=== PATIENT | female | born 1950 | race Caucasian/White ===

== ENCOUNTER 2022-09-30 10:45 | Emergency (ER) | payer MEDICARE, OTHER, SELFPAY ==
[2022-09-30] VITALS (11 sets, daily range): BP systolic 145–181; BP diastolic 67–84; PULSE 70–99; RESP 20–22; TEMP 36.6; O2SAT 94–98; BMI 47.5
--- NOTE | 2022-09-30 11:04 | DI.CT.S_ITS ---
PROCEDURE: CT ABDOMEN PELVIS W CON INDICATIONS: RLQ ABD pain has had appy TECHNIQUE: After the administration of oral and IV contrast, axial sections were acquired from the lung bases to the pubic symphysis. Coronal and sagittal reformats were performed. For radiation dose reduction, the following was used: automated exposure control, adjustment of mA and/or kV according to patient size. COMPARISON: None. FINDINGS: Image quality: Excellent. Lung bases: Unremarkable. Heart: Mildly prominent. ABDOMEN: Liver: Mild appendix steatosis is present. Gallbladder: Removed. Biliary ducts: Unremarkable. Pancreas: Unremarkable. Spleen: Unremarkable. Adrenal Glands: Unremarkable. 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 There is a very minimal prominence of the right renal collecting system. Renal fossa is unremarkable. Simple left renal cyst. Stomach and Bowel: Stomach, small bowel loops, and colon are nonobstructive. Colonic diverticula are present. No associated inflammatory change. Visualized portion of the appendix is normal. No right lower quadrant inflammatory change. Peritoneum: No abnormal intraperitoneal fluid. No free air. Ventral Wall: No hernia. Abdominal Nodes: No retroperitoneal or mesenteric adenopathy by size criteria. Vessels: Aorta and inferior vena cava are normal in size. PELVIS: Pelvic Organs: Unremarkable. Bladder: Unremarkable. Pelvic Nodes: No enlarged lymph nodes. Miscellaneous: No inguinal hernias are seen. Bones: Unremarkable. IMPRESSION: Minimal prominence of the right renal collecting system. Recently passed stone cannot be definitively excluded. Diverticulosis. Dictated by: Alisia Fontaine M.D. on 09/30/2022 at 13:27 Approved by: Alisia Fontaine M.D. on 09/30/2022 at 13:29
--- NOTE | 2022-09-30 11:15 | ED_ITS ---
HPI - General Adult General Chief complaint: Abdominal Pain Stated complaint: Rt Lower Abd Pain Time Seen by Provider: 09/30/22 11:03 Source: patient Mode of arrival: Ambulatory History of Present Illness HPI narrative: Patient is a 71-year-old female. Here for evaluation of right lower quadrant abdominal pain. She states that it started this morning. Potentially woke her up from sleep. Has not had any urinary symptoms no change in bowel habits. No vomiting. She has had her appendix out and also her right ovary. She is also had her left kidney removed. There is no skin changes of the area. It does hurt to touch and move. Has not tried anything for the symptoms prior to arrival. Related Data Previous Rx's Medication Instructions Recorded hydrocodone 5 mg-acetaminophen 325 1 tab PO Q8H PRN pain #7 tabs 09/30/22 mg tablet Allergies Allergy/AdvReac Type Severity Reaction Status Date / Time No Known Drug Allergies Allergy Verified 09/30/22 11:04 Review of Systems Review of Systems ROS Unobtainable: All systems reviewed & are unremarkable except as noted in HPI and below Patient History Social History Smoking Status: Unknown if ever smoked Smoking Status: Unknown if ever smoked alcohol intake frequency: holidays/special occasions only Substance Use Type: does not use Exam Initial Vital Signs Initial Vital Signs: Vital Signs Temperature 97.9 F 09/30/22 11:00 Pulse Rate 91 H 09/30/22 11:00 Respiratory Rate 22 09/30/22 11:00 Blood Pressure 181/79 H 09/30/22 11:00 Pulse Oximetry 94 09/30/22 11:00 Oxygen Delivery Method Room Air 09/30/22 11:00 Const General: cooperative, comfortable and No ill appearing [facility] Head: normal to inspection and normocephalic Resp Effort & Inspection: normal respiratory effort Auscultation: clear to auscultation bilaterally Cardio Rate: regular rate GI Inspection: normal to inspection and non-distended Palpation: No firm and tender (Right-sided lower abdominal pain located within the pannus.) Back/Spine/Pelvis Back: No CVA tenderness Skin General: no rashes or lesions noted Neuro General: patient alert, patient awake and moves all extremities Extrem General: capillary refill normal Psych Appearance: grossly normal and well kempt Course Orders Ordered: ED Orders 09/30/22 11:04 CT abdomen pelvis w con Stat 09/30/22 11:23 Complete Blood Count AUTO DIFF Stat Comprehensive Metabolic Panel Stat Lipase Stat Ondansetron HCl (Ondansetron 4 Mg/2 Ml Inj) 4 mg IV NOW PRN PRN Reason: Nausea And Vomiting Discontinued Medications Hydrocodone Bitart/Acetaminophen (Hydrocodone/Acet 5/325 Tablet) 1 tab PO NOW ONE Stop: 09/30/22 13:56 Sodium Chloride (Normal Saline 0.9%) 1,000 mls @ 1,000 mls/hr IV BOLUS ONE Stop: 09/30/22 12:02 Last Infusion: 09/30/22 12:15 Dose: 0 mls/hr Documented By: Admin: 09/30/22 11:26 Dose: 1,000 mls/hr Documented By: JUDITH Ketorolac Tromethamine (Ketorolac 30 Mg/Ml Vial) 30 mg IV NOW ONE Stop: 09/30/22 11:04 Last Admin: 09/30/22 11:22 Dose: Not Given Documented By: JUDITH Morphine Sulfate (Morphine 4 Mg/Ml Inj) 4 mg IV NOW ONE Stop: 09/30/22 11:16 Last Admin: 09/30/22 11:26 Dose: 4 mg Documented By: JUDITH Vital Signs Vital signs: Vital Signs - 8 hr 09/30/22 11:00 09/30/22 11:04 09/30/22 11:04 Temperature 97.9 F Pulse Rate 91 H 78 Respiratory Rate 22 Blood Pressure 181/79 H 181/79 H Pulse Oximetry 94 96 Oxygen Delivery Method Room Air 09/30/22 11:30 09/30/22 11:31 09/30/22 11:31 Temperature Pulse Rate 83 78 Respiratory Rate Blood Pressure 154/69 H Pulse Oximetry 96 95 Oxygen Delivery Method 09/30/22 12:00 09/30/22 12:01 09/30/22 12:01 Temperature Pulse Rate 71 70 Respiratory Rate Blood Pressure 145/67 H Pulse Oximetry 98 97 Oxygen Delivery Method 09/30/22 12:31 Temperature Pulse Rate 87 Respiratory Rate Blood Pressure Pulse Oximetry 97 Oxygen Delivery Method Medical Decision Making Lab Data Lab results reviewed: Yes I reviewed the patient's lab results. 09/30/22 11:23 09/30/22 11:23 Labs: Lab Results 09/30/22 09/30/22 Range/Units 11:23 11:23 WBC 8.1 (4.5-11.0) X10^3/uL RBC 5.00 (4.0-5.2) X10^6/uL Hgb 14.6 (12.0-16.0) g/dL Hct 44.4 (36-46) % MCV 88.7 (80-100) fL MCH 29.3 (26-34) PG MCHC 33.0 (30-36) % RDW 13.4 (11.6-14.8) % Plt Count 309 (150-400) X10^3/uL Neut % (Auto) 58.8 (50-75) % Lymph % (Auto) 31.8 (25-40) % [place] % (Auto) 6.6 (3-14) % Eos % (Auto) 2.0 (2-4) % Baso % (Auto) 0.8 (0-2) % Neut # (Auto) 4700 (8556-6073) /uL Lymph # (Auto) 2600 (4446-8286) /uL [place] # (Auto) 500 (0-900) /uL Eos # (Auto) 200 (0-450) /uL Baso # (Auto) 100 (0-100) /uL Sodium 136 L (137-145) mmol/L Potassium 4.2 (3.4-5.1) mmol/L Chloride 103 (98-107) mmol/L Carbon Dioxide 25 (22-32) mmol/L BUN 16 (7-17) mg/dL Creatinine 1.04 (0.52-1.04) mg/dL Estimated GFR 57 L (>60) mL/min BUN/Creatinine Ratio 15.4 (6-22) Glucose 116 H (80-110) mg/dL Calcium 9.4 (8.4-10.2) mg/dL Total Bilirubin 0.9 (0.2-1.3) mg/dL AST 24 (14-36) IU/L ALT 25 (<35) IU/L Alkaline Phosphatase 35 L (38-126) U/L Total Protein 7.3 (6.3-8.2) g/dL Albumin 4.0 (3.5-5.0) g/dL Globulin 3.3 (1.7-4.1) g/dL Albumin/Globulin Ratio 1.2 (1.0-2.8) Lipase 86 (23-300) U/L Urine Dip Bedside Urine Glucose Negative Bedside Urine Bilirubin - Negative Bedside Urine Ketone - Negative Urine Specific [place] 1.015 Bedside Urine Occult Blood - Negative Bedside Urine pH 6.0 Bedside Urine Protein - Negative Bedside Urine Urobilinogen - Negative Bedside Urine Nitrite - Negative Bedside Urine Leukocytes - Negative Esterase Point of care testing: Urine Dip Bedside Urine Glucose Negative Bedside Urine Bilirubin - Negative Bedside Urine Ketone - Negative Urine Specific [place] 1.015 Bedside Urine Occult Blood - Negative Bedside Urine pH 6.0 Bedside Urine Protein - Negative Bedside Urine Urobilinogen - Negative Bedside Urine Nitrite - Negative Bedside Urine Leukocytes - Negative Esterase Imaging Data CT scan - abdomen/pelvis: Radiologist's Impression: PROCEDURE:? CT ABDOMEN PELVIS W CON ? INDICATIONS:? RLQ ABD pain has had appy ? TECHNIQUE:? After the administration of oral and IV contrast, axial sections were acquired from the lung bases to the pubic symphysis.? Coronal and sagittal reformats were performed.? For radiation dose reduction, the following was used:? automated exposure control, adjustment of mA and/or kV according to patient size. ? COMPARISON:? None. ? FINDINGS:? Image quality:? Excellent.? ? Lung bases:? Unremarkable.? ? Heart:? Mildly prominent. ? ? ABDOMEN: Liver:? Mild appendix steatosis is present. Gallbladder:? Removed. Biliary ducts:? Unremarkable.? ? Pancreas:? Unremarkable.? ? Spleen:? Unremarkable.? ? Adrenal Glands:? Unremarkable.? ? Kidneys and Ureters:? Left kidney has been removed.? There is a very minimal prominence of the right renal collecting system.? Renal fossa is unremarkable.? Simple left renal cyst. ? Stomach and Bowel:? Stomach, small bowel loops, and colon are nonobstructive.? Colonic diverticula are present.? No associated inflammatory change.? Visualized portion of the appendix is normal.? No right lower quadrant inflammatory change. Peritoneum:? No abnormal intraperitoneal fluid.? No free air.? ? Ventral Wall: ? No hernia.? Abdominal Nodes:? No retroperitoneal or mesenteric adenopathy by size criteria.? Vessels:? Aorta and inferior vena cava are normal in size.? ? PELVIS: Pelvic Organs:? Unremarkable.? ? Bladder:? Unremarkable.? ? Pelvic Nodes: No enlarged lymph nodes.? Miscellaneous: No inguinal hernias are seen. ? ? ? Bones:? Unremarkable.? IMPRESSION:? ? Minimal prominence of the right renal collecting system.? Recently passed stone cannot be definitively excluded. ? Diverticulosis. MDM Narrative Medical decision making narrative: Patient has no skin changes over the area that would make me think of cellulitis /abscess or zoster. CT scan does not show any fluid collection in the area. CT scan also does not show any acute pathology. Patient is not having any urinary symptoms. She does have stranding in the right sided ureteral system however her urinalysis is negative for infection. No kidney stone seen on the exam. She is currently still having symptoms so I suspect that kidney stone is unlikely. This also no signs of diverticulitis. No suspicion for stump appendicitis. She is had her ovary removed on the right. I discussed all this with her. She understands the lack of a definitive diagnosis of her symptoms. Was sent home with symptom control. She was given specific return precautions and follow-up instructions. She expressed understanding and agreement. Discharge Plan Departure Patient Disposition: Home Clinical Impression: Abdominal pain Instructions: DI for Abdominal Pain-Adult Activity Restrictions/Additional Instructions: Your workup today is very reassuring and there does not appear to be any signs of bowel obstruction or hernia or other surgical issue. Unfortunately this does not give us a specific cause of your discomfort. I recommend that we treat you with pain medication. If your symptoms change or you develop a rash or any other worsening symptoms please return to the emergency department for further evaluation. Prescriptions: New hydrocodone-acetaminophen 5-325 mg tablet 1 tab PO Q8H PRN (Reason: pain) Qty: 7 0RF Referrals: Fernanda Mendiola PA-C [Primary Care Provider] - Stand Alone Forms: Patient Portal/API
[2022-09-30] MEDS: SODIUM CHLORIDE 0.9% 1,000 ML 1000 ML IV (11:26)
[2022-09-30] MEDS: MORPHINE 4 MG/ML INJ IV (11:26)
[2022-09-30 11:32] LABS: Add Manual Diff / Slide Review NO; Basophils Absolute Auto 100 /uL (0-100); Basophils Percent Auto 0.8 % (0-2); Eosinophils Absolute Auto 200 /uL (0-450); Hematocrit 44.4 % (36-46); Hemoglobin 14.6 g/dL (12.0-16.0); Lymphocytes Absolute Auto 2600 /uL (1100-4500); Lymphocytes Percent Auto 31.8 % (25-40); Mean Corpuscular Hemoglobin 29.3 PG (26-34); Mean Corpuscular Volume 88.7 fL (80-100); Monocytes Absolute Auto 500 /uL (0-900); Monocytes Percent Auto 6.6 % (3-14); Neutrophils Absolute Auto 4700 /uL (1500-7000); Neutrophils Percent Auto 58.8 % (50-75); Platelet Count 309 X10^3/uL (150-400); Red Cell Distribution Width 13.4 % (11.6-14.8); White Blood Cell Count 8.1 X10^3/uL (4.5-11.0)
[2022-09-30 11:46] LABS: Alanine Aminotransferase 25 IU/L (<35); Albumin Globulin Ratio 1.2 (1.0-2.8); Alkaline Phosphatase 35 U/L (38-126); Aspartate Aminotransferase 24 IU/L (14-36); BUN Creatinine Ratio 15.4 (6-22); Bilirubin Total 0.9 mg/dL (0.2-1.3); Blood Urea Nitrogen 16 mg/dL (7-17); Calcium 9.4 mg/dL (8.4-10.2); Carbon Dioxide 25 mmol/L (22-32); Chloride 103 mmol/L (98-107); Estimated Glomerular Filt Rate 57 mL/min (>60); Globulin 3.3 g/dL (1.7-4.1); Glucose 116 mg/dL (80-110); HEMOLYSIS < 15 (0-50); Lipase 86 U/L (23-300); Potassium 4.2 mmol/L (3.4-5.1); Sodium 136 mmol/L (137-145); Total Protein 7.3 g/dL (6.3-8.2)
[2022-09-30] MEDS: HYDROCODONE/ACET 5/325 TABLET 1 TAB PO (13:58)
== END 2022-09-30 14:13 | disposition home or self-care (01) ==
PROVIDERS: Emergency Provider Emergency Medicine; PCP Student in an Organized Health Care Education/Training Program
DX: R10.31 Right lower quadrant pain (principal)
CPT/HCPCS: 36415; 74177; 80053; 81003; 83690; 85025; 96361; 96374; 99284; J2270; Q9967

== ENCOUNTER → 2022-11-28 11:23 | Outpatient (CLI) | payer MEDICARE, OTHER, SELFPAY ==
--- NOTE | 2022-11-28 | DI.CT.S_ITS ---
PROCEDURE: CT ANGIO ABDOMEN PELVIS INDICATIONS: RIGHT LOWER QUADRANT PAIN TECHNIQUE: After the administration of intravenous contrast, 2.5 mm thick sections acquired from the diaphragm to the symphysis. 10 mm maximum-intensity projection (MIP) reformats were then acquired. For radiation dose reduction, the following was used: automated exposure control. COMPARISON: [facility] Outside Film, MR, MR LUMBAR SPINE WITHOUT CONTRAST, 04/25/2022, 9:54. [facility], CT, CT ABDOMEN PELVIS W CON, 09/30/2022, 12:14. FINDINGS: Image quality: Excellent. Aorta: The aorta demonstrates normal caliber with mild scattered atheromatous calcifications. No aneurysmal dilatation or stenosis. Mesenteric arteries: Celiac trunk, superior and inferior mesenteric arteries appear patent. The right renal artery is widely patent. Right pelvic arteries: No stenosis. Left pelvic arteries: No stenosis. Extravascular soft tissues: Lung bases are clear. Heart size is normal. Liver is normal in size and enhancement. Gallbladder is surgically absent. Biliary system is non dilated. Pancreas enhances normally. Spleen is normal in size and enhancement. No right adrenal nodules. There is an enhancing 1.3 x 0.8 cm left adrenal gland nodule (series 4/image 69). Right kidney demonstrates normal size. No hydronephrosis. A cortical cyst is present in the lower pole. The left kidney is surgically absent. There is a small hiatal hernia. Non opacified bowel loops are normal in wall thickness and caliber. There are scattered sigmoid diverticula. No evidence for diverticulitis. No free fluid or air. No retroperitoneal or mesenteric adenopathy. No ventral hernias. No suspicious bony lesions. No vertebral body compression fractures. IMPRESSION: 1. Mesenteric arteries are widely patent. 2. No acute intra-abdominal findings. Diverticulosis. No acute diverticulitis. 3. Enhancing left adrenal gland nodule. If further characterization is warranted, adrenal mass protocol MRI recommended. Dictated by: Sarah Gee M.D. on 11/28/2022 at 15:57 Approved by: Sarah Gee M.D. on 11/28/2022 at 16:03
== END ==
PROVIDERS: PCP Student in an Organized Health Care Education/Training Program; Referring Provider Nurse Practitioner Family; Visit Provider Nurse Practitioner Family
DX: K44.9 Diaphragmatic hernia without obstruction or gangrene (principal); E27.9 Disorder of adrenal gland, unspecified; K57.30 Diverticulosis of large intestine without perforation or abscess without bleeding; R10.31 Right lower quadrant pain; Z90.49 Acquired absence of other specified parts of digestive tract
CPT/HCPCS: 74174

== ENCOUNTER → 2024-03-07 08:32 | Outpatient (CLI) | payer MEDICARE, OTHER, SELFPAY ==
[2024-03-07 10:07] LABS: Hematocrit 44.9 % (36-46)
[2024-03-07 10:19] LABS: BUN Creatinine Ratio 12.2 (6-22); Blood Urea Nitrogen 14 mg/dL (7-17); Carbon Dioxide 26 mmol/L (22-32); Chloride 103 mmol/L (98-107); Estimated Glomerular Filt Rate 50 mL/min (>60); Glucose 100 mg/dL (80-110); HEMOLYSIS < 15 (0-50); Potassium 4.7 mmol/L (3.4-5.1); Sodium 137 mmol/L (137-145)
[2024-03-07 10:32] LABS: Creatinine Urine Random 215.75 mg/dL
[2024-03-07 10:33] LABS: Protein (Total) Urine Random < 5 mg/dL (0-12); Protein Creatinine Ratio Urine 0.02 GRAM/24H
== END ==
PROVIDERS: PCP Student in an Organized Health Care Education/Training Program; Referring Provider Student in an Organized Health Care Education/Training Program; Visit Provider Student in an Organized Health Care Education/Training Program
DX: N05.9 Unspecified nephritic syndrome with unspecified morphologic changes (principal); D64.9 Anemia, unspecified; R80.9 Proteinuria, unspecified
CPT/HCPCS: 36415; 80048; 82570; 84156; 85014; 85018

== ENCOUNTER → 2024-09-16 07:22 | Outpatient (CLI) | payer MEDICARE, OTHER, SELFPAY ==
[2024-09-16 08:39] LABS: Hematocrit 43.2 % (36-46); Hemoglobin 14.8 g/dL (12.0-16.0)
[2024-09-16 09:00] LABS: BUN Creatinine Ratio 17.3 (6-22); Blood Urea Nitrogen 19 mg/dL (7-17); Calcium 9.8 mg/dL (8.4-10.2); Carbon Dioxide 33 mmol/L (22-32); Chloride 97 mmol/L (98-107); Estimated Glomerular Filt Rate 52 mL/min (>60); Glucose 106 mg/dL (80-110); HEMOLYSIS < 15 (0-50); Phosphorous 3.2 mg/dL (2.8-4.1); Potassium 3.3 mmol/L (3.4-5.1); Sodium 136 mmol/L (137-145)
[2024-09-16 09:12] LABS: Creatinine Urine Random 125.14 mg/dL; Protein (Total) Urine Random 6 mg/dL (0-12); Protein Creatinine Ratio Urine 0.04 GRAM/24H
[2024-09-17 19:38] LABS: Calcium 9.7 mg/dL (8.7-10.3); Parathyroid Hormone, Intact 85 pg/mL (15-65)
== END ==
PROVIDERS: PCP Family Medicine; Referring Provider Student in an Organized Health Care Education/Training Program; Visit Provider Student in an Organized Health Care Education/Training Program
DX: D70.9 Neutropenia, unspecified (principal); D63.1 Anemia in chronic kidney disease; N05.9 Unspecified nephritic syndrome with unspecified morphologic changes; N25.81 Secondary hyperparathyroidism of renal origin; E83.30 Disorder of phosphorus metabolism, unspecified; R80.9 Proteinuria, unspecified
CPT/HCPCS: 36415; 80048; 82310; 82570; 83970; 84100; 84156; 85014; 85018

== ENCOUNTER → 2024-09-26 16:09 | Outpatient (CLI) | payer MEDICARE, OTHER, SELFPAY ==
[2024-09-26 17:04] LABS: BUN Creatinine Ratio 17.4 (6-22); Blood Urea Nitrogen 20 mg/dL (7-17); Calcium 9.7 mg/dL (8.4-10.2); Carbon Dioxide 33 mmol/L (22-32); Chloride 98 mmol/L (98-107); Estimated Glomerular Filt Rate 50 mL/min (>60); Glucose 122 mg/dL (70-99); HEMOLYSIS 16 (0-50); Potassium 3.3 mmol/L (3.4-5.1); Sodium 139 mmol/L (137-145)
== END ==
LOC: LAB 16:18
PROVIDERS: Referring Provider Student in an Organized Health Care Education/Training Program; Visit Provider Student in an Organized Health Care Education/Training Program
DX: N05.9 Unspecified nephritic syndrome with unspecified morphologic changes (principal)
CPT/HCPCS: 36415; 80048

== ENCOUNTER → 2024-10-02 07:22 | Outpatient (CLI) | payer MEDICARE, OTHER, SELFPAY ==
[2024-10-02 09:38] LABS: HEMOLYSIS < 15 (0-50); Potassium 3.5 mmol/L (3.4-5.1)
== END ==
PROVIDERS: PCP Student in an Organized Health Care Education/Training Program; Referring Provider Student in an Organized Health Care Education/Training Program; Visit Provider Student in an Organized Health Care Education/Training Program
DX: E87.5 Hyperkalemia (principal)
CPT/HCPCS: 36415; 84132

== ENCOUNTER 2024-10-12 16:47 | Emergency (ER) | payer MEDICARE, OTHER, SELFPAY ==
[2024-10-12] VITALS (18 sets, daily range): BP systolic 123–172; BP diastolic 55–120; PULSE 82–93; RESP 18–38; TEMP 36.9–37; O2SAT 90–99
--- NOTE | 2024-10-12 16:59 | DI.RAD.S_ITS ---
PROCEDURE: XR CHEST 2V INDICATIONS: Rule out pneumonia TECHNIQUE: 2 views of the chest were acquired. COMPARISON: None. FINDINGS: Surgical changes and devices: Upper abdominal postoperative clips are seen. Lungs and pleura: Generalized interstitial prominence can be seen. No pleural effusions or pneumothorax. Mediastinum: The cardiac contours are mildly enlarged. The aorta demonstrates calcification and tortuosity. Bones and chest wall: No suspicious bony abnormalities. Age-appropriate bony degenerative changes are seen. Soft tissues appear unremarkable. IMPRESSION: Cardiomegaly with interstitial prominence. CHF is suspected. No focal infiltrates are seen. Postoperative and degenerative changes are seen. Dictated by: Jeramie Hong M.D. on 10/12/2024 at 16:33 Approved by: Jeramie Hong M.D. on 10/12/2024 at 16:34
[2024-10-12] MEDS: ALBUTEROL/IPRATROPIUM 3 ML AMPUL INH ×4 (17:26→19:58)
[2024-10-12 17:51] LABS: Influenza A - CEPHEID Flu A POSITIVE (NEGATIVE); Influenza B - CEPHEID Flu B NEGATIVE (NEGATIVE); Respiratory Syncytial Virus Negative (Negative)
[2024-10-12 17:55] LABS: COVID-19 CEPHEID 4-PLEX PCR Negative (Negative)
--- NOTE | 2024-10-12 18:03 | EKG_ITS ---
[facility] [id number] [place] [address] Test Date: 2024-10-12 Pat Name: Kenya Matos Department: [facility] Room: Gender: Female [employer] Operating Engineer: TROY : [id number] Requested By: Order Number: [id number] Reading MD: Remigio Carrasco MD Measurements Intervals [place] Rate: 83 P: 51 HI: 146 QRS: 16 QRSD: 88 T: 8 QT: 376 QTc: 441 Interpretive Statements Sinus rhythm with premature atrial complexes Nonspecific ST abnormality Electronically Signed On 10-13-2024 7:28:52 PDT by Remigio Carrasco MD
--- NOTE | 2024-10-12 18:20 | ED_ITS ---
HPI - URI/Sore Throat <Yareli Valadez PA-C - Last Filed: 10/12/24 19:39> General Chief Complaint: Upper Respiratory Symptoms Stated Complaint: coughing, vomiting, fever Time Seen by Provider: 10/12/24 18:19 History of Present Illness HPI Narrative: Ms. Matos is a pleasant 74-year-old female with a past medical history of hypertension, HERMILA with CPAP, prior meningioma who presents to the emergency department for cough, nausea, vomiting, flu-like symptoms x3 days. Patient just returned today from an [employer] cruise with her . States that about 3 days ago she started feeling sick with a dry cough and had a few episodes of nausea and vomiting yesterday, she has been feeling hot and cold. Wheezing at night. She denies chest pain, shortness of breath, lower extremity swelling however she does admit to chronic lower extremity swelling only at nighttime - no known history of CHF. She is having no abdominal pain. She is having some redness around her right eye now. Related Data Previous Rx's Medication Instructions Recorded erythromycin 5 mg/gram (0.5 %) eye 1 applic EYE-LEFT TID eye 10/12/24 ointment infection 7 days #3.5 grams oseltamivir 75 mg capsule (Tamiflu) 75 mg PO BID 5 days #10 caps 10/12/24 prednisone 20 mg tablet 40 mg (2 x 20 mg) PO DAILY 5 days 10/12/24 #10 tabs Allergies Allergy/AdvReac Type Severity Reaction Status Date / Time No Known Drug Allergies Allergy Verified 10/30/23 15:59 Review of Systems <Yareli Valadez PA-C - Last Filed: 10/12/24 19:39> Review of Systems ROS Unobtainable: All systems reviewed & are unremarkable except as noted in HPI and below Patient History <Yareli Valadez PA-C - Last Filed: 10/12/24 19:39> Social History Smoking Status: Never smoker Smoking Status: Never smoker alcohol intake frequency: holidays/special occasions only Exam <Yareli Valadez PA-C - Last Filed: 10/12/24 19:39> Narrative Exam Narrative: GENERAL: 74 year old patient appears stated age. Well-developed patient, in no acute distress. HEAD: Atraumatic. Normocephalic. EYES: Erythema of right periocular skin, no pain with eye movements bilaterally, Normal sclera. NECK: Trachea midline. Cervical ROM intact. CARDIOVASCULAR: Regular rate and rhythm. RESPIRATORY: Nonlabored respirations. Speaking in clear, full sentences. Patient has diffuse expiratory wheezing Throughout, no increased work of breathing. GASTROINTESTINAL: Abdomen soft, non-tender, nondistended. EXTREMITIES: No lower extremity pitting edema. NEURO: AOx3. Clear speech. Moves all 4 extremities appropriately. SKIN: No rash or erythema of visible areas Initial Vital Signs Initial Vital Signs: Vital Signs Temperature 98.5 F 10/12/24 16:55 Pulse Rate 90 10/12/24 16:55 Respiratory Rate 18 10/12/24 16:55 Blood Pressure 172/120 H 10/12/24 16:55 Pulse Oximetry 94 10/12/24 16:55 Oxygen Delivery Method Room Air 10/12/24 16:55 <Neo Atkins MD - Last Filed: 10/12/24 22:36> Initial Vital Signs Initial Vital Signs: Vital Signs Temperature 98.5 F 10/12/24 16:55 Pulse Rate 90 10/12/24 16:55 Respiratory Rate 18 10/12/24 16:55 Blood Pressure 172/120 H 10/12/24 16:55 Pulse Oximetry 94 10/12/24 16:55 Oxygen Delivery Method Room Air 10/12/24 16:55 Course <Yareli Valadez PA-C - Last Filed: 10/12/24 19:39> Orders Ordered: ED Orders 10/12/24 16:59 Chest [XR chest 2V] Stat 10/12/24 17:02 Covid-19 + FLU A/B + RSV - PCR Stat 10/12/24 17:59 EKG-12 Lead Stat Measure peak expiratory flow STAT RT Consult Eval and Treat STAT 10/12/24 18:10 Complete Blood Count AUTO DIFF Stat Comprehensive Metabolic Panel Stat Lactate (Lactic Acid) Stat NT-proBNP (BNP-Adult 18+) Stat Prothrombin Time INR Stat Troponin I Stat Discontinued Medications Albuterol/Ipratropium (Albuterol/Ipratropium 3 Ml Ampul) 3 ml INH NOW ONE Stop: 10/12/24 17:25 Last Admin: 10/12/24 17:26 Dose: 3 ml Documented By: JK Albuterol/Ipratropium (Albuterol/Ipratropium 3 Ml Ampul) 3 ml INH Q20M SHILO Stop: 10/12/24 19:56 Last Admin: 10/12/24 19:58 Dose: 3 ml Documented By: Admin: 10/12/24 19:38 Dose: 3 ml Documented By: Admin: 10/12/24 19:22 Dose: 3 ml Documented By: QUENTIN Erythromycin (Erythromycin Ophth 1 Gm Oint) 1 applic EYE-RIGHT NOW ONE Stop: 10/12/24 19:13 Last Admin: 10/12/24 19:23 Dose: 1 applic Documented By: QUENTIN Methylprednisolone (Methylprednisolone 125 Mg/2 Ml Vial) 125 mg IV NOW ONE Stop: 10/12/24 19:05 Last Admin: 10/12/24 19:23 Dose: 125 mg Documented By: QUENTIN Ondansetron HCl (Ondansetron 4 Mg/2 Ml Inj) 4 mg IV NOW ONE Stop: 10/12/24 18:39 Last Admin: 10/12/24 18:44 Dose: 4 mg Documented By: QUENTIN Oseltamivir Phosphate (Oseltamivir 75 Mg Capsule) 75 mg PO NOW ONE Stop: 10/12/24 19:05 Last Admin: 10/12/24 19:22 Dose: 75 mg Documented By: QUENTIN Vital Signs Vital signs: Vital Signs - 8 hr 10/12/24 16:55 10/12/24 17:50 10/12/24 17:56 Temperature 98.5 F Pulse Rate 90 85 86 Respiratory Rate 18 20 Blood Pressure 172/120 H 134/61 Pulse Oximetry 94 96 94 Oxygen Delivery Method Room Air Room Air 10/12/24 17:58 10/12/24 17:58 10/12/24 18:00 Temperature Pulse Rate 86 86 Respiratory Rate Blood Pressure 142/65 H Pulse Oximetry 93 92 Oxygen Delivery Method 10/12/24 18:00 10/12/24 18:17 10/12/24 18:17 Temperature Pulse Rate 83 Respiratory Rate Blood Pressure 150/56 H 144/64 H Pulse Oximetry 95 Oxygen Delivery Method Room Air 10/12/24 18:30 10/12/24 18:31 10/12/24 18:31 Temperature Pulse Rate 82 84 Respiratory Rate 30 H 29 H Blood Pressure 151/66 H Pulse Oximetry 93 93 Oxygen Delivery Method 10/12/24 18:48 10/12/24 19:00 10/12/24 19:00 Temperature Pulse Rate 82 Respiratory Rate 24 38 H Blood Pressure 133/60 Pulse Oximetry 92 Oxygen Delivery Method 10/12/24 19:30 10/12/24 19:32 10/12/24 19:32 Temperature Pulse Rate 92 H 87 Respiratory Rate 36 H 28 H Blood Pressure 132/59 L Pulse Oximetry 94 94 Oxygen Delivery Method 10/12/24 20:00 10/12/24 20:01 10/12/24 20:01 Temperature Pulse Rate 92 H 93 H Respiratory Rate 27 H 24 Blood Pressure 123/55 L Pulse Oximetry 99 98 Oxygen Delivery Method 10/12/24 20:30 10/12/24 20:31 10/12/24 20:31 Temperature Pulse Rate 93 H 92 H Respiratory Rate Blood Pressure 145/56 H Pulse Oximetry 90 L 91 Oxygen Delivery Method Room Air 10/12/24 21:00 10/12/24 21:12 Temperature 98.6 F Pulse Rate 92 H Respiratory Rate 22 22 Blood Pressure Pulse Oximetry 91 95 Oxygen Delivery Method Room Air <Neo Atkins MD - Last Filed: 10/12/24 22:36> Orders Ordered: ED Orders 10/12/24 16:59 Chest [XR chest 2V] Stat 10/12/24 17:02 Covid-19 + FLU A/B + RSV - PCR Stat 10/12/24 17:59 EKG-12 Lead Stat Measure peak expiratory flow STAT RT Consult Eval and Treat STAT 10/12/24 18:10 Complete Blood Count AUTO DIFF Stat Comprehensive Metabolic Panel Stat Lactate (Lactic Acid) Stat NT-proBNP (BNP-Adult 18+) Stat Prothrombin Time INR Stat Troponin I Stat Discontinued Medications Albuterol/Ipratropium (Albuterol/Ipratropium 3 Ml Ampul) 3 ml INH NOW ONE Stop: 10/12/24 17:25 Last Admin: 10/12/24 17:26 Dose: 3 ml Documented By: DAKSHA Albuterol/Ipratropium (Albuterol/Ipratropium 3 Ml Ampul) 3 ml INH Q20M SHILO Stop: 10/12/24 19:56 Last Admin: 10/12/24 19:58 Dose: 3 ml Documented By: Admin: 10/12/24 19:38 Dose: 3 ml Documented By: Admin: 10/12/24 19:22 Dose: 3 ml Documented By: QUENTIN Erythromycin (Erythromycin Ophth 1 Gm Oint) 1 applic EYE-RIGHT NOW ONE Stop: 10/12/24 19:13 Last Admin: 10/12/24 19:23 Dose: 1 applic Documented By: QUENTIN Methylprednisolone (Methylprednisolone 125 Mg/2 Ml Vial) 125 mg IV NOW ONE Stop: 10/12/24 19:05 Last Admin: 10/12/24 19:23 Dose: 125 mg Documented By: QUENTIN Ondansetron HCl (Ondansetron 4 Mg/2 Ml Inj) 4 mg IV NOW ONE Stop: 10/12/24 18:39 Last Admin: 10/12/24 18:44 Dose: 4 mg Documented By: QUENTIN Oseltamivir Phosphate (Oseltamivir 75 Mg Capsule) 75 mg PO NOW ONE Stop: 10/12/24 19:05 Last Admin: 10/12/24 19:22 Dose: 75 mg Documented By: QUENTIN Vital Signs Vital signs: Vital Signs - 8 hr 10/12/24 16:55 10/12/24 17:50 10/12/24 17:56 Temperature 98.5 F Pulse Rate 90 85 86 Respiratory Rate 18 20 Blood Pressure 172/120 H 134/61 Pulse Oximetry 94 96 94 Oxygen Delivery Method Room Air Room Air 10/12/24 17:58 10/12/24 17:58 10/12/24 18:00 Temperature Pulse Rate 86 86 Respiratory Rate Blood Pressure 142/65 H Pulse Oximetry 93 92 Oxygen Delivery Method 10/12/24 18:00 10/12/24 18:17 10/12/24 18:17 Temperature Pulse Rate 83 Respiratory Rate Blood Pressure 150/56 H 144/64 H Pulse Oximetry 95 Oxygen Delivery Method Room Air 10/12/24 18:30 10/12/24 18:31 10/12/24 18:31 Temperature Pulse Rate 82 84 Respiratory Rate 30 H 29 H Blood Pressure 151/66 H Pulse Oximetry 93 93 Oxygen Delivery Method 10/12/24 18:48 10/12/24 19:00 10/12/24 19:00 Temperature Pulse Rate 82 Respiratory Rate 24 38 H Blood Pressure 133/60 Pulse Oximetry 92 Oxygen Delivery Method 10/12/24 19:30 10/12/24 19:32 10/12/24 19:32 Temperature Pulse Rate 92 H 87 Respiratory Rate 36 H 28 H Blood Pressure 132/59 L Pulse Oximetry 94 94 Oxygen Delivery Method 10/12/24 20:00 10/12/24 20:01 10/12/24 20:01 Temperature Pulse Rate 92 H 93 H Respiratory Rate 27 H 24 Blood Pressure 123/55 L Pulse Oximetry 99 98 Oxygen Delivery Method 10/12/24 20:30 10/12/24 20:31 10/12/24 20:31 Temperature Pulse Rate 93 H 92 H Respiratory Rate Blood Pressure 145/56 H Pulse Oximetry 90 L 91 Oxygen Delivery Method Room Air 10/12/24 21:00 10/12/24 21:12 Temperature 98.6 F Pulse Rate 92 H Respiratory Rate 22 22 Blood Pressure Pulse Oximetry 91 95 Oxygen Delivery Method Room Air MDM - URI/Sore Throat <Yareli Valadez PA-C - Last Filed: 10/12/24 19:39> Medical Records Attestation: I reviewed the patient's medical records. Medical records narrative: Reviewed ED visit from 09/30/2022 Lab Data 10/12/24 18:10 10/12/24 18:10 Labs: Lab Results 10/12/24 10/12/24 Range/Units 17:02 18:10 WBC 5.9 (4.5-11.0) X10^3/uL RBC 4.52 (4.0-5.2) X10^6/uL Hgb 13.5 (12.0-16.0) g/dL Hct 40.5 (36-46) % MCV 89.6 (80-100) fL MCH 29.9 (26-34) PG MCHC 33.4 (30-36) % RDW 14.3 (11.6-14.8) % Plt Count 207 (150-400) X10^3/uL Neut % (Auto) 45.9 L (50-75) % Lymph % (Auto) 39.3 (25-40) % [place] % (Auto) 13.6 (3-14) % Eos % (Auto) 0.1 L (2-4) % Baso % (Auto) 1.1 (0-2) % Neut # (Auto) 2700 (7513-7172) /uL Lymph # (Auto) 2300 (5499-8600) /uL [place] # (Auto) 800 (0-900) /uL Eos # (Auto) 0 (0-450) /uL Baso # (Auto) 100 (0-100) /uL PT 14.2 H (9.4-12.5) SECONDS INR 1.3 (0.9-1.3) Sodium 132 L (137-145) mmol/L Potassium 3.8 (3.4-5.1) mmol/L Chloride 100 (98-107) mmol/L Carbon Dioxide 23 (22-32) mmol/L BUN 17 (7-17) mg/dL Creatinine 1.11 H (0.52-1.04) mg/dL Estimated GFR 52 L (>60) mL/min BUN/Creatinine Ratio 15.3 (6-22) Glucose 88 (70-99) mg/dL Lactate 1.1 (0.7-2.1) mmol/L Calcium 8.7 (8.4-10.2) mg/dL Total Bilirubin 0.7 (0.2-1.3) mg/dL AST 59 H (14-36) IU/L ALT 48 H (<35) IU/L Alkaline Phosphatase 26 L (38-126) U/L Troponin I < 0.012 (0.01-0.034) ng/mL NT-Pro-B Natriuret Pep 582 H (<450) pg/mL Total Protein 6.8 (6.3-8.2) g/dL Albumin 3.7 (3.5-5.0) g/dL Globulin 3.1 (1.7-4.1) g/dL Albumin/Globulin Ratio 1.2 (1.0-2.8) SARS-CoV-2 (PCR) Negative (Negative) Influenza A (RT-PCR) Flu a positive H (NEGATIVE) Influenza B (RT-PCR) Flu b negative (NEGATIVE) RSV (PCR) Negative (Negative) Imaging Data Chest x-ray: Radiologist's Impression: PROCEDURE: XR CHEST 2V INDICATIONS: Rule out pneumonia TECHNIQUE: 2 views of the chest were acquired. COMPARISON: None. FINDINGS: Surgical changes and devices: Upper abdominal postoperative clips are seen. Lungs and pleura: Generalized interstitial prominence can be seen. No pleural effusions or pneumothorax. Mediastinum: The cardiac contours are mildly enlarged. The aorta demonstrates calcification and tortuosity. Bones and chest wall: No suspicious bony abnormalities. Age-appropriate bony degenerative changes are seen. Soft tissues appear unremarkable. IMPRESSION: Cardiomegaly with interstitial prominence. CHF is suspected. No focal infiltrates are seen. Postoperative and degenerative changes are seen. Dictated by: Jeramie Hong M.D. on 10/12/2024 at 16:33 Approved by: Jeramie Hong M.D. on 10/12/2024 at 16:34 [facility] Narrative Medical decision making narrative: 74-year-old female with a past medical history of hypertension, HERMILA with CPAP, prior meningioma who presents to the emergency department for cough, nausea, vomiting, flu-like symptoms x3 days. Differential diagnosis includes but is not limited to viral syndrome, pneumonia, bronchitis, CHF, pleural effusions, electrolyte abnormality, etc. On exam the patient is in no acute distress, nontoxic appearing, triage vital signs initially with elevated blood pressure however normalized after retake. Patient was evaluated by respiratory therapy prior to my evaluation and was given 1 DuoNeb for expiratory wheezing. On my evaluation she is having no increased work of breathing but she is having diffuse expiratory wheezes. Viral swab is positive for flu A. Chest x-ray reveals cardiomegaly with interstitial prominence. CHF is suspected. No focal infiltrates are seen. She tested positive for influenza A. We will treat patient with a additional DuoNeb x2, IV Solu-Medrol, Tamiflu. She is not requiring oxygen at this time however does occasionally desaturate to 89- 90% while sleeping, she does use CPAP at home. Labs reveal normal WBC count 5.9, hemoglobin 13.5, platelets 207. Sodium slightly low at 132, BUN 17 and creatinine is 1.11 which appears poor baseline. Slight elevations of AST 59, ALT 48, abdomen is soft and nontender. Troponin is negative. BNP slightly elevated at 582. Discussed with the patient that symptoms are likely related influenza a however she likely has some underlying CHF. At this time she does not appear to be in an acute CHF exacerbation, due to shift change, nighttime physician will reassess patient after she has received medications to determine disposition. Patient is agreeable with the plan and transfers care. <Neo Atkins MD - Last Filed: 10/12/24 22:36> Lab Data Labs: Lab Results 10/12/24 10/12/24 Range/Units 17:02 18:10 WBC 5.9 (4.5-11.0) X10^3/uL RBC 4.52 (4.0-5.2) X10^6/uL Hgb 13.5 (12.0-16.0) g/dL Hct 40.5 (36-46) % MCV 89.6 (80-100) fL MCH 29.9 (26-34) PG MCHC 33.4 (30-36) % RDW 14.3 (11.6-14.8) % Plt Count 207 (150-400) X10^3/uL Neut % (Auto) 45.9 L (50-75) % Lymph % (Auto) 39.3 (25-40) % [place] % (Auto) 13.6 (3-14) % Eos % (Auto) 0.1 L (2-4) % Baso % (Auto) 1.1 (0-2) % Neut # (Auto) 2700 (9668-2614) /uL Lymph # (Auto) 2300 (0509-6934) /uL [place] # (Auto) 800 (0-900) /uL Eos # (Auto) 0 (0-450) /uL Baso # (Auto) 100 (0-100) /uL PT 14.2 H (9.4-12.5) SECONDS INR 1.3 (0.9-1.3) Sodium 132 L (137-145) mmol/L Potassium 3.8 (3.4-5.1) mmol/L Chloride 100 (98-107) mmol/L Carbon Dioxide 23 (22-32) mmol/L BUN 17 (7-17) mg/dL Creatinine 1.11 H (0.52-1.04) mg/dL Estimated GFR 52 L (>60) mL/min BUN/Creatinine Ratio 15.3 (6-22) Glucose 88 (70-99) mg/dL Lactate 1.1 (0.7-2.1) mmol/L Calcium 8.7 (8.4-10.2) mg/dL Total Bilirubin 0.7 (0.2-1.3) mg/dL AST 59 H (14-36) IU/L ALT 48 H (<35) IU/L Alkaline Phosphatase 26 L (38-126) U/L Troponin I < 0.012 (0.01-0.034) ng/mL NT-Pro-B Natriuret Pep 582 H (<450) pg/mL Total Protein 6.8 (6.3-8.2) g/dL Albumin 3.7 (3.5-5.0) g/dL Globulin 3.1 (1.7-4.1) g/dL Albumin/Globulin Ratio 1.2 (1.0-2.8) SARS-CoV-2 (PCR) Negative (Negative) Influenza A (RT-PCR) Flu a positive H (NEGATIVE) Influenza B (RT-PCR) Flu b negative (NEGATIVE) RSV (PCR) Negative (Negative) ECG Data Attestation: I personally reviewed and interpreted this ECG as follows: Interpretation: Normal sinus rhythm with rate of 83, no obvious ST segment elevation or depression changes. IN 146, QRS 88, QTC 441. [facility] Narrative Medical decision making narrative: 74-year-old female with a past medical history of hypertension, HERMILA with CPAP, prior meningioma who presents to the emergency department for cough, nausea, vomiting, flu-like symptoms x3 days. Differential diagnosis includes but is not limited to viral syndrome, pneumonia, bronchitis, CHF, pleural effusions, electrolyte abnormality, etc. On exam the patient is in no acute distress, nontoxic appearing, triage vital signs initially with elevated blood pressure however normalized after retake. Patient was evaluated by respiratory therapy prior to my evaluation and was given 1 DuoNeb for expiratory wheezing. On my evaluation she is having no increased work of breathing but she is having diffuse expiratory wheezes. Viral swab is positive for flu A. Chest x-ray reveals cardiomegaly with interstitial prominence. CHF is suspected. No focal infiltrates are seen. She tested positive for influenza A. We will treat patient with a additional DuoNeb x2, IV Solu-Medrol, Tamiflu. She is not requiring oxygen at this time however does occasionally desaturate to 89- 90% while sleeping, she does use CPAP at home. Labs reveal normal WBC count 5.9, hemoglobin 13.5, platelets 207. Sodium slightly low at 132, BUN 17 and creatinine is 1.11 which appears poor baseline. Slight elevations of AST 59, ALT 48, abdomen is soft and nontender. Troponin is negative. BNP slightly elevated at 582. Discussed with the patient that symptoms are likely related influenza A however she likely has some underlying CHF. At this time she does not appear to be in an acute CHF exacerbation, due to shift change, nighttime physician will reassess patient after she has received medications to determine disposition. Patient is agreeable with the plan and transfers care. 10/12/2024, Wilbert Doshi. Sign-out from MARRY Valadez. 74-year-old female with history of hypertension, HERMILA on CPAP, has 3 days duration of flu-like illness, recent cough nausea and vomiting. Borderline oxygenation, wheezing on examination, nebulized bronchodilator given. Screening chest x-ray suspicious for interstitial fluid and edema possible CHF. BNP 500s not very elevated, no lower extremity edema. Clinically does not seem to have significant congestive heart failure by examination. Respiratory panel positive for influenza, given oral Tamiflu dose. We will give further nebulized bronchodilator Atrovent, add IV Solu-Medrol, assess for improvement in respiratory status, borderline saturation initially noted. Assumed care. Right eye conjunctivitis, requesting antibiotic ointment, erythromycin antibiotic ointment dispensed, additional supply for 7 day course sent to her pharmacy. She feels better after Solu-Medrol and nebulized breathing treatments, she would like to go home. We will send prescription for Tamiflu and prednisone pulse to her pharmacy. Recheck advised with the regular doctor. Discharged home with . Return precautions discussed. Discharge Plan Departure Patient Disposition: Home Clinical Impression: Influenza A, Wheezing, Conjunctivitis Activity Restrictions/Additional Instructions: Recent cough and shortness of breath, wheezing on examination. Positive respiratory swab for influenza type A. Tamiflu antiviral 1st dose given, prescription for further 5 day course. IV steroid and breathing treatments given, wheezing seemed to be improving. No persistent oxygen requirement. You felt better and wanted to go home. Consider taking prednisone steroid for the next few days as well. You have inhalers to use at home. Recheck lung exam with your regular doctor advised early next week. Return earlier to this/nearest emergency department for any change worsening symptoms or any concerns prior. Prescriptions: New oseltamivir [Tamiflu] 75 mg capsule 75 mg PO BID 5 Days Qty: 10 0RF prednisone 20 mg tablet 40 mg PO DAILY 5 Days Qty: 10 0RF erythromycin 5 mg/gram (0.5 %) ointment 1 applic EYE-LEFT TID 7 Days Qty: 3.5 0RF Referrals: Fernanda Mendiola PA-C [Primary Care Provider] - Stand Alone Forms: Patient Portal/API/Survey
[2024-10-12 18:23] LABS: Add Manual Diff / Slide Review NO; Basophils Absolute Auto 100 /uL (0-100); Basophils Percent Auto 1.1 % (0-2); Eosinophils Absolute Auto 0 /uL (0-450); Eosinophils Percent Auto 0.1 % (2-4); Hematocrit 40.5 % (36-46); Hemoglobin 13.5 g/dL (12.0-16.0); Lymphocytes Absolute Auto 2300 /uL (1100-4500); Lymphocytes Percent Auto 39.3 % (25-40); Mean Corpuscular HGB Conc 33.4 % (30-36); Mean Corpuscular Hemoglobin 29.9 PG (26-34); Mean Corpuscular Volume 89.6 fL (80-100); Monocytes Absolute Auto 800 /uL (0-900); Monocytes Percent Auto 13.6 % (3-14); Neutrophils Absolute Auto 2700 /uL (1500-7000); Neutrophils Percent Auto 45.9 % (50-75); Platelet Count 207 X10^3/uL (150-400); Red Blood Cell Count 4.52 X10^6/uL (4.0-5.2); Red Cell Distribution Width 14.3 % (11.6-14.8); White Blood Cell Count 5.9 X10^3/uL (4.5-11.0)
[2024-10-12 18:32] LABS: INR 1.3 (0.9-1.3); Prothrombin Time 14.2 SECONDS (9.4-12.5)
[2024-10-12 18:37] LABS: Alanine Aminotransferase 48 IU/L (<35); Albumin 3.7 g/dL (3.5-5.0); Albumin Globulin Ratio 1.2 (1.0-2.8); Alkaline Phosphatase 26 U/L (38-126); Aspartate Aminotransferase 59 IU/L (14-36); BUN Creatinine Ratio 15.3 (6-22); Bilirubin Total 0.7 mg/dL (0.2-1.3); Blood Urea Nitrogen 17 mg/dL (7-17); Calcium 8.7 mg/dL (8.4-10.2); Carbon Dioxide 23 mmol/L (22-32); Chloride 100 mmol/L (98-107); Estimated Glomerular Filt Rate 52 mL/min (>60); Globulin 3.1 g/dL (1.7-4.1); Glucose 88 mg/dL (70-99); HEMOLYSIS 42 (0-50); Lactate (Lactic Acid) 1.1 mmol/L (0.7-2.1); Potassium 3.8 mmol/L (3.4-5.1); Sodium 132 mmol/L (137-145); Total Protein 6.8 g/dL (6.3-8.2)
[2024-10-12] MEDS: ONDANSETRON 4 MG/2 ML INJ IV (18:44)
[2024-10-12 18:49] LABS: NT-proBNP (BNP-Adult 18+) 582 pg/mL (<450); Troponin I < 0.012 ng/mL (0.01-0.034)
[2024-10-12] MEDS: OSELTAMIVIR 75 MG CAPSULE PO (19:22)
[2024-10-12] MEDS: methylPREDNISolone 125 MG/2 ML VIAL IV (19:23)
[2024-10-12] MEDS: ERYTHROMYCIN OPHTH 1 GM OINT 1 APPLIC EYE-RIGHT (19:23)
== END 2024-10-12 21:10 | disposition home or self-care (01) ==
PROVIDERS: Emergency Medicine; Emergency Provider Emergency Medicine; PCP Student in an Organized Health Care Education/Training Program
DX: J10.1 Influenza due to other identified influenza virus with other respiratory manifestations (principal); R06.2 Wheezing; H10.9 Unspecified conjunctivitis; I10 Essential (primary) hypertension
CPT/HCPCS: 0241U; 36415; 71046; 80053; 83605; 83880; 84484; 85025; 85610; 93005; 93010; 96374; 96375; 99284; J2405; J2919

== ENCOUNTER → 2024-11-17 12:19 | Outpatient (CLI) | payer MEDICARE, OTHER, SELFPAY ==
[2024-11-17 13:28] LABS: BUN Creatinine Ratio 18.9 (6-22); Blood Urea Nitrogen 20 mg/dL (7-17); Calcium 9.9 mg/dL (8.4-10.2); Carbon Dioxide 28 mmol/L (22-32); Chloride 103 mmol/L (98-107); Estimated Glomerular Filt Rate 54 mL/min (>60); Glucose 93 mg/dL (70-99); HEMOLYSIS 15 (0-50); Potassium 4.3 mmol/L (3.4-5.1); Sodium 138 mmol/L (137-145)
[2024-11-17 14:51] LABS: Creatinine Urine Random 103.64 mg/dL; Protein (Total) Urine Random < 5 mg/dL (0-12); Protein Creatinine Ratio Urine 0.04 GRAM/24H
== END ==
PROVIDERS: PCP Family Medicine; Referring Provider Student in an Organized Health Care Education/Training Program; Visit Provider Student in an Organized Health Care Education/Training Program
DX: N05.9 Unspecified nephritic syndrome with unspecified morphologic changes (principal); R80.9 Proteinuria, unspecified
CPT/HCPCS: 36415; 80048; 82570; 84156

== ENCOUNTER → 2024-12-29 08:25 | Outpatient (CLI) | payer MEDICARE, OTHER, SELFPAY ==
--- NOTE | 2024-12-29 08:31 | DI.RAD.S_ITS ---
PROCEDURE: XR FINGER LT MIN 2V INDICATIONS: LT THUMB INJURY TECHNIQUE: AP hand, 2 views of the left thumb finger(s) acquired. COMPARISON: None. FINDINGS: Bones: No fractures or dislocations. No suspicious bony lesions. Polyarticular degenerative changes of the left hand involving the PIP and DIP joints from the 2nd through 5th fingers. There also mild degenerative changes of the metacarpophalangeal joints of the thumb through 3rd fingers. Moderate degenerative changes of the left thumb interphalangeal joint with marginal osteophyte formation. There is mild joint space loss. Overlying soft tissue swelling. There are also degenerative changes of the 1st carpometacarpal and triscaphe joint. Soft tissues: No suspicious soft tissue calcifications. Soft tissue swelling of the left thumb noted. IMPRESSION: Soft tissue swelling of the left thumb with moderate underlying degenerative changes of the 1st interphalangeal joint and 1st carpometacarpal/triscaphe joints. Dictated by: Rian Liang M.D. on 12/29/2024 at 12:28 Approved by: Rian Liang M.D. on 12/29/2024 at 12:31
== END ==
PROVIDERS: PCP Family Medicine; Referring Provider Family Medicine; Visit Provider Family Medicine
DX: S61.052A Open bite of left thumb without damage to nail, initial encounter (principal); M79.89 Other specified soft tissue disorders; W54.0XXA Bitten by dog, initial encounter
CPT/HCPCS: 73140

== ENCOUNTER → 2025-05-05 11:07 | Outpatient (CLI) | payer MEDICARE, OTHER, SELFPAY ==
[2025-05-05 11:59] LABS: Hematocrit 42.2 % (36-46); Hemoglobin 14.0 g/dL (12.0-16.0)
[2025-05-05 12:25] LABS: Blood Urea Nitrogen 17 mg/dL (7-17); Calcium 9.8 mg/dL (8.4-10.2); Carbon Dioxide 29 mmol/L (22-32); Chloride 103 mmol/L (98-107); Estimated Glomerular Filt Rate 53 mL/min (>60); Glucose 123 mg/dL (70-99); HEMOLYSIS < 15 (0-50); Potassium 4.8 mmol/L (3.4-5.1); Sodium 139 mmol/L (137-145)
[2025-05-05 14:01] LABS: Protein (Total) Urine Random < 5 mg/dL (0-12); Protein Creatinine Ratio Urine 0.02 GRAM/24H
== END ==
PROVIDERS: PCP Family Medicine; Referring Provider Student in an Organized Health Care Education/Training Program; Visit Provider Student in an Organized Health Care Education/Training Program
DX: D70.9 Neutropenia, unspecified (principal); D63.1 Anemia in chronic kidney disease; N05.9 Unspecified nephritic syndrome with unspecified morphologic changes; N25.81 Secondary hyperparathyroidism of renal origin; R80.9 Proteinuria, unspecified
CPT/HCPCS: 36415; 80048; 82570; 83970; 84156; 85014; 85018